=== PATIENT | female | born 1965 | race African-American/Black ===

== ENCOUNTER 2018-01-16 18:35 | Emergency (ER) | payer MEDICAID ==
[~2018-01-16] VITALS: Ht 162.6 cm; Wt 109.1 kg
[2018-01-16 19:01] VITALS: Ht 162.6 cm; Wt 109.1 kg
[2018-01-16] MEDS ORDERED: NAPROSYN500 MG PO (19:01)
[2018-01-16] MEDS ORDERED: NORVASC10 MG PO (19:02)
[2018-01-16] MEDS ORDERED: CYCLOBENZAPRINE10 MG PO (19:02)
[2018-01-16] MEDS ORDERED: LOSARTAN-HCTZ1 EAC2 PO (19:05)
[2018-01-16] MEDS ORDERED: AUGMENTIN 875-11 TAB PO (20:42)
[2018-01-16] MEDS ORDERED: TORADOL10 MG PO (20:44)
[2018-01-16 22:07] VITALS: BP 195/83
== END 2018-01-16 22:10 | disposition home or self-care (01) ==
LOC: D.ER 18:35
DX: H66.91 Otitis media, unspecified, right ear (principal); J02.9 Acute pharyngitis, unspecified; I10 Essential (primary) hypertension; F17.200 Nicotine dependence, unspecified, uncomplicated